=== PATIENT | male | born 1965 | race Caucasian/White ===

== ENCOUNTER 2021-12-06 12:41 | Emergency (ER) | payer MEDICARE, OTHER ==
[2021-12-06 12:50] VITALS: BP 121/77; PULSE 103; RESP 18; TEMP 98.8
--- NOTE | 2021-12-06 14:35 | XR ---
EXAMINATION TYPE: XR femur RT, XR Hip Complete RT DATE OF EXAM: 12/06/2021 1:38 PM INDICATION: Patient age:Male; 56 years old; Reason for study: pain; COMPARISON: Right knee radiograph 09/10/2015 TECHNIQUE: The right femur was examined in AP and lateral projections. Right hip is examined in front al and lateral projections. FINDINGS: Post surgical changes from right total hip arthroplasty. Hardware appears intact. No evide nce of acute osseous pathology, joint dislocation, or soft tissue swelling . Pelvic phleboliths. Oste oarthritic changes of the right knee with joint space narrowing, sclerosis, marginal osteophytosis. N o joint effusion. IMPRESSION: 1. No acute osseous pathology. 2. Postsurgical changes from right total hip arthroplasty. Hardware appears intact. 3. Mild osteoarthritic changes of the right knee.
== END 2021-12-06 15:50 | disposition left against medical advice (07) ==
LOC: EC 12:41
DX: Z53.21 Procedure and treatment not carried out due to patient leaving prior to being seen by health care provider (principal)
CPT/HCPCS: 73502; 99499

== ENCOUNTER 2023-05-23 18:16 | Observation (INO) | payer MEDICARE, OTHER ==
--- NOTE | 2023-05-23 18:39 | ED ---
General Adult HPI - General Chief complaint: Shortness of Breath Stated complaint: Dyspnea Time Seen by Provider: 05/23/23 18:26 Source: patient, family, RN notes reviewed Mode of arrival: wheelchair Limitations: no limitations - History of Present Illness Initial comments: Patient is a 57-year-old male presenting to the emergency department with compla ints of shortness of breath. Symptoms have progressed over the past few weeks. Patient does have nonproductive cough. No fever. Patient has had a little bit of leg swelling. No calf pain. Patient is also developed some right upper abdominal discomfort. Patient does have history of COPD with similar symptoms previously - Related Data Home Medications Medication Instructions Recorded Confirmed ALPRAZolam [Xanax] 0.25 mg PO HS PRN 11/17/14 11/23/14 Albuterol Inhaler [Ventolin 1 - 2 puff INHALATION Q6HR PRN 11/17/14 11/23/14 Inhaler] Albuterol Nebulized [Ventolin 2.5 mg INHALATION BID 11/17/14 11/23/14 Nebulized] Ibuprofen [Motrin] 800 mg PO Q8HR PRN 11/17/14 11/23/14 Pregabalin [Lyrica] 300 mg PO BID 11/17/14 11/23/14 oxyCODONE-APAP 10-325MG [Percocet 1 each PO Q6HR PRN 11/17/14 11/23/14 10-325] Previous Rx's Medication Instructions Recorded Cyclobenzaprine [Flexeril] 10 mg PO TID PRN #15 tab 11/23/14 Allergies Allergy/AdvReac Type Severity Reaction Status Date / Time venom-honey bee Allergy Unknown Verified 12/06/21 12:50 [bee venom (honey bee)] Review of Systems ROS Statement: Those systems with pertinent positive or pertinent negative responses have been documented in the HPI. ROS Other: All systems not noted in ROS Statement are negative. Constitutional: Denies: fever Eyes: Denies: eye pain ENT: Denies: ear pain Respiratory: Reports: as per HPI, cough, dyspnea Cardiovascular: Denies: chest pain Endocrine: Reports: fatigue Gastrointestinal: Reports: as per HPI, abdominal pain Genitourinary: Denies: dysuria Musculoskeletal: Denies: back pain Skin: Denies: rash Past Medical History Past Medical History: Asthma, Chest Pain / Angina, COPD Additional Past Medical History / Comment(s): pain upper neck, lt shoulder and lower back with 3 bulging disc History of Any Multi-Drug Resistant Organisms: None Reported Past Surgical History: Orthopedic Surgery Additional Past Surgical History / Comment(s): rt rotator cuff repair, tumor removed lower back Past Anesthesia/Blood Transfusion Reactions: No Reported Reaction Past Psychological History: Anxiety Smoking Status: Current every day smoker Past Alcohol Use History: Occasional Past Drug Use History: Marijuana - Past Family History Father Family Medical History: Cancer, CVA/TIA, Myocardial Infarction ([place]) Mother Family Medical History: CVA/TIA, Myocardial Infarction ([place]) Brother(s) Family Medical History: Cancer, Coronary Artery Disease (CAD) Additional Family Medical History / Comment(s): brother- heart transplant, other brother liver cancer General Exam Limitations: no limitations General appearance: alert Head exam: Present: normocephalic Eye exam: Present: normal appearance Neck exam: Present: normal inspection Respiratory exam: Present: respiratory distress, wheezes, decreased breath sounds Cardiovascular Exam: Present: regular rate, normal rhythm GI/Abdominal exam: Present: soft, tenderness (Mild to moderate right upper quadrant), normal bowel sounds. Absent: pulsatile mass Extremities exam: Present: pedal edema (+1 bilateral). Absent: calf tenderness Neurological exam: Present: alert Psychiatric exam: Present: anxious Skin exam: Present: normal color Course Vital Signs 05/23/23 05/23/23 05/23/23 18:18 18:20 18:47 Temperature 98.3 F Pulse Rate 97 81 Respiratory 46 H 24 Rate Blood Pressure 180/96 O2 Sat by Pulse 85 L Oximetry 05/23/23 05/23/23 18:56 20:20 Temperature 98.5 F Pulse Rate 83 89 Respiratory 20 Rate Blood Pressure 145/78 O2 Sat by Pulse 92 L Oximetry EKG Findings - EKG Results: EKG: interpreted by ERMD (Right axis), sinus rhythm, normal QRS, normal ST/T Medical Decision Making - Medical Decision Making Was pt. sent in by a medical professional or institution (, PA, [employer], urgent care, hospital, or shelter...) When possible be specific @ -No Did you speak to anyone other than the patient for history (EMS, parent, family, police, friend...)? What history was obtained from this source @ -Family is present and helps confirm history and adds to additional history of right upper quadrant tenderness Did you review nursing and triage notes (agree or disagree)? Why? @ -I reviewed and agree with nursing and triage notes Were old charts reviewed (outside hosp., previous admission, EMS record, old EKG, old radiological studies, urgent care reports/EKG's, shelter records)? Report findings @ -Previous chest x-ray reviewed Differential Diagnosis (chest pain, altered mental status, abdominal pain women, abdominal pain men, vaginal bleeding, weakness, fever, dyspnea, syncope, headache, dizziness, GI bleed, back pain, seizure, CVA, palpatations, mental health, musculoskeletal)? @ -Differential Dyspnea: Coronary syndrome, arrhythmia, tamponade, asthma, COPD, pulmonary embolism, pneumonia, pneumothorax, pulmonary effusion, anaphylaxis, diabetic ketoacidosis, flailed chest, pulmonary contusion, diaphragmatic rupture, anemia, neuromuscular, this is not meant to be an all-inclusive list. EKG interpreted by me (3pts min.). @ -As above X-rays interpreted by me (1pt min.). @ -Chest x-ray shows nonspecific interstitial changes CT interpreted by me (1pt min.). @ -None done U/S interpreted by me (1pt. min.). @ -Ultrasound gallbladder shows no stones. Nonspecific hepatic steatosis What testing was considered but not performed or refused? (CT, X-rays, U/S, labs)? Why? @ -None What meds were considered but not given or refused? Why? @ -None Did you discuss the management of the patient with other professionals (professionals i.e. , PA, [employer], lab, RT, psych nurse, social media senior associate, rib builder, teacher, ambulance officer, counter caser)? Give summary @ -Case was discussed with Dr. Richard, who will admit covering hospital call Was smoking cessation discussed for >3mins.? @ -No Was critical care preformed (if so, how long)? @ -No Were there social determinants of health that impacted care today? How? (Homelessness, low income, unemployed, alcoholism, drug addiction, transportation, low edu. Level, literacy, decrease access to med. care, [facility], rehab)? @ -No Was there de-escalation of care discussed even if they declined (Discuss DNR or withdrawal of care, Hospice)? DNR status @ -No What co-morbidities impacted this encounter? (DM, HTN, Smoking, COPD, CAD, Cancer, CVA, ARF, Chemo, Hep., AIDS, mental health diagnosis, sleep apnea, morbid obesity)? @ -Underlying COPD Was patient admitted / discharged? Hospital course, mention meds given and route, prescriptions, significant lab abnormalities, going to OR and other pertinent info. @ -Patient reevaluated and somewhat improved. No respiratory distress. Patient requiring 3 L of oxygen to remain above 90%. His continued wheezing and decreased air exchange. Patient updated on results and plan. Patient will be admitted with pulmonary consult. Undiagnosed new problem with uncertain prognosis? @ -No Drug Therapy requiring intensive monitoring for toxicity (Heparin, Nitro, Insulin, Cardizem)? @ -No Were any procedures done? @ -No Diagnosis/symptom? @ -COPD exacerbation Acute, or Chronic, or Acute on Chronic? @ -Acute Uncomplicated (without systemic symptoms) or Complicated (systemic symptoms)? @ -Default Side effects of treatment? @ -No Exacerbation, Progression, or Severe Exacerbation? @ -Exacerbation Poses a threat to life or bodily function? How? (Chest pain, [place], [place], pneumonia, PE, COPD, DKA, ARF, appy, cholecystitis, CVA, Diverticulitis, Homicidal, Suicidal, threat to staff... and all critical care pts) @ -No - Lab Data Result diagrams: 05/23/23 18:43 05/23/23 18:43 Lab Results 05/23/23 05/23/23 05/23/23 Range/Units 18:43 18:43 18:43 WBC 7.9 (3.8-10.6) k/uL RBC 4.61 (4.30-5.90) m/uL Hgb 14.8 (13.0-17.5) gm/dL Hct 46.2 (39.0-53.0) % MCV 100.3 H (80.0-100.0) fL MCH 32.2 (25.0-35.0) pg MCHC 32.1 (31.0-37.0) g/dL RDW 14.6 (11.5-15.5) % Plt Count 259 (150-450) k/uL MPV 7.6 Neutrophils % 66 % Lymphocytes % 19 % Monocytes % 7 % Eosinophils % 5 % Basophils % 1 % Neutrophils # 5.3 (1.3-7.7) k/uL Lymphocytes # 1.5 (1.0-4.8) k/uL Monocytes # 0.5 (0-1.0) k/uL Eosinophils # 0.4 (0-0.7) k/uL Basophils # 0.0 (0-0.2) k/uL Macrocytosis Slight PT 10.5 (10.0-12.5) sec INR 1.0 (<1.2) APTT 25.9 (22.0-30.0) sec Sodium 137 (137-145) mmol/L Potassium 4.3 (3.5-5.1) mmol/L Chloride 101 (98-107) mmol/L Carbon Dioxide 34 H (22-30) mmol/L Anion Gap 2 mmol/L BUN 4 L (9-20) mg/dL Creatinine 0.63 L (0.66-1.25) mg/dL Est GFR (CKD-EPI)AfAm >90 (>60 ml/min/1.73 sqM) Est GFR (CKD-EPI)NonAf >90 (>60 ml/min/1.73 sqM) Glucose 114 H (74-99) mg/dL Plasma Lactic Acid Kelvin (0.7-2.0) mmol/L Calcium 9.0 (8.4-10.2) mg/dL Magnesium 1.8 (1.6-2.3) mg/dL Total Bilirubin 0.7 (0.2-1.3) mg/dL AST 52 (17-59) U/L ALT 31 (4-49) U/L Alkaline Phosphatase 85 (38-126) U/L Troponin I (0.000-0.034) ng/mL NT-Pro-B Natriuret Pep 310 pg/mL Total Protein 6.7 (6.3-8.2) g/dL Albumin 4.2 (3.5-5.0) g/dL Influenza Type A (PCR) (Not Detectd) Influenza Type B (PCR) (Not Detectd) RSV (PCR) (Not Detectd) SARS-CoV-2 (PCR) (Not Detectd) 05/23/23 05/23/23 05/23/23 Range/Units 18:43 18:43 18:43 WBC (3.8-10.6) k/uL RBC (4.30-5.90) m/uL Hgb (13.0-17.5) gm/dL Hct (39.0-53.0) % MCV (80.0-100.0) fL MCH (25.0-35.0) pg MCHC (31.0-37.0) g/dL RDW (11.5-15.5) % Plt Count (150-450) k/uL MPV Neutrophils % % Lymphocytes % % Monocytes % % Eosinophils % % Basophils % % Neutrophils # (1.3-7.7) k/uL Lymphocytes # (1.0-4.8) k/uL Monocytes # (0-1.0) k/uL Eosinophils # (0-0.7) k/uL Basophils # (0-0.2) k/uL Macrocytosis PT (10.0-12.5) sec INR (<1.2) APTT (22.0-30.0) sec Sodium (137-145) mmol/L Potassium (3.5-5.1) mmol/L Chloride (98-107) mmol/L Carbon Dioxide (22-30) mmol/L Anion Gap mmol/L BUN (9-20) mg/dL Creatinine (0.66-1.25) mg/dL Est GFR (CKD-EPI)AfAm (>60 ml/min/1.73 sqM) Est GFR (CKD-EPI)NonAf (>60 ml/min/1.73 sqM) Glucose (74-99) mg/dL Plasma Lactic Acid Kelvni 1.5 (0.7-2.0) mmol/L Calcium (8.4-10.2) mg/dL Magnesium (1.6-2.3) mg/dL Total Bilirubin (0.2-1.3) mg/dL AST (17-59) U/L ALT (4-49) U/L Alkaline Phosphatase (38-126) U/L Troponin I <0.012 (0.000-0.034) ng/mL NT-Pro-B Natriuret Pep pg/mL Total Protein (6.3-8.2) g/dL Albumin (3.5-5.0) g/dL Influenza Type A (PCR) Not Detected (Not Detectd) Influenza Type B (PCR) Not Detected (Not Detectd) RSV (PCR) Not Detected (Not Detectd) SARS-CoV-2 (PCR) Not Detected (Not Detectd) Disposition Clinical Impression: Acute exacerbation of chronic obstructive pulmonary disease Disposition: ADMITTED IP TO THIS HOSP Is patient prescribed a controlled substance at d/c from ED?: No Referrals: None,Stated [Primary Care Provider] - 1-2 days Time of Disposition: 22:11
[2023-05-23] MEDS: IPRATROPIUM-ALBUTEROL 3 ML NEB INHALATION STA (18:48)
[2023-05-23] MEDS: MORPHINE SULFATE 4 MG/ML SYRINGE IVP STA (18:53)
[2023-05-23] MEDS: methylPREDNISolone SOD SUCCI 125 MG/2 ML VIAL IV STA (18:53)
[2023-05-23 19:04] LABS: Basophils % (A) 1 %; Eosinophils # (A) 0.4 k/uL (0-0.7); Eosinophils % (A) 5 %; HCT 46.2 % (39.0-53.0); HGB 14.8 gm/dL (13.0-17.5); Lymphocytes # (A) 1.5 k/uL (1.0-4.8); Lymphocytes % (A) 19 %; MCH 32.2 pg (25.0-35.0); MCHC 32.1 g/dL (31.0-37.0); MCV 100.3 fL (80.0-100.0); Macrocytosis Slight; Mean Platelet Volume 7.6; Monocytes # (A) 0.5 k/uL (0-1.0); Monocytes % (A) 7 %; Neutrophils # (A) 5.3 k/uL (1.3-7.7); Neutrophils % (A) 66 %; Platelet Count 259 k/uL (150-450); RBC 4.61 m/uL (4.30-5.90); RDW 14.6 % (11.5-15.5); WBC 7.9 k/uL (3.8-10.6)
[2023-05-23 19:16] LABS: ALT 31 U/L (4-49); AST 52 U/L (17-59); African American GFR (CKD) >90 (>60 ml/min/1.73 sqM); Albumin 4.2 g/dL (3.5-5.0); Alkaline Phosphatase 85 U/L (38-126); Anion Gap 2 mmol/L; Blood Urea Nitrogen 4 mg/dL (9-20); Carbon Dioxide 34 mmol/L (22-30); Chloride 101 mmol/L (98-107); Glucose 114 mg/dL (74-99); Magnesium 1.8 mg/dL (1.6-2.3); Non-African American GFR(CKD) >90 (>60 ml/min/1.73 sqM); Potassium 4.3 mmol/L (3.5-5.1); Sodium 137 mmol/L (137-145); Total Bilirubin 0.7 mg/dL (0.2-1.3); Total Protein 6.7 g/dL (6.3-8.2)
[2023-05-23 19:24] LABS: NT-Pro-B-Type Natriuretic Pept 310 pg/mL
[2023-05-23 19:45] LABS: Partial Thromboplastin Time 25.9 sec (22.0-30.0); Prothrombin Time 10.5 sec (10.0-12.5)
--- NOTE | 2023-05-23 20:08 | XR ---
EXAMINATION TYPE: XR chest 2V DATE OF EXAM: 05/23/2023 COMPARISON: 11/23/2014 HISTORY: 57 year-old male shortness of breath, difficulty breathing TECHNIQUE: PA and lateral views FINDINGS: Reverse left shoulder plasty. ACF hardware. Heart borderline enlarged. Hyperinflation. Diffuse inters titial density is present. Strandy atelectasis at the left base. No angel consolidation or pleural ef fusion. IMPRESSION: Borderline heart size, COPD, and interstitial density. Differential considerations include bronchitis , asthma, atypical pneumonias, and mild pulmonary vascular congestion. Clinically correlate.
--- NOTE | 2023-05-23 21:08 | US ---
EXAMINATION TYPE: US gallbladder DATE OF EXAM: 05/23/2023 COMPARISON: NONE CLINICAL INDICATION: Male, 57 years old with history of pain; TECHNIQUE: Multiple sonographic images of the right upper quadrant are obtained. FINDINGS: EXAM MEASUREMENTS: Liver Length: 15.9 cm Gallbladder Wall: 0.14 cm CBD: 0.49 cm Right Kidney: 10.6 x 5.9 x 4.9 cm Pancreas: Obscured by bowel gas Liver: Echogenic with heterogeneous parenchyma. Small hypoechoic area seen adjacent to the GB measur ing 1.1 x 1.3 x 0.7cm. Tiny suggest focal fatty sparing. Gallbladder: wnl Evidence for sonographic Nugent's sign: No CBD: wnl Right Kidney: wnl IMPRESSION: 1. At least moderate hepatic steatosis. Appropriate clinical management is advised. 2. No gallstones or biliary ductal dilatation.
[2023-05-23] MEDS ORDERED: NALOXONE 0.4 MG/ML 1 ML VIAL IVP PRN (22:12)
[2023-05-23] MEDS: AZITHROMYCIN 500 MG in SODIUM CHLORIDE 0.9% 250 ML IVPB STA (22:44)
[2023-05-23] MEDS: ACETAMINOPHEN TAB 325 MG TAB PO PRN (22:53)
[2023-05-24] MEDS: methylPREDNISolone SOD SUCCI 125 MG/2 ML VIAL IV SCH (00:19)
[2023-05-24] MEDS: THIAMINE 100 MG/ML 2 ML VIAL IM STA (00:35)
[2023-05-24] MEDS: MORPHINE SULFATE 4 MG/ML SYRINGE IVP STA (00:35)
[2023-05-24] MEDS: LORazepam 2 MG/ML INJ IV PRN ×3 (01:27→12:08)
--- NOTE | 2023-05-24 03:14 | P.HPIM ---
History of Present Illness H&P Date: 05/23/23 Chief Complaint: SOB 57-year-old male with COPD current smoker Patient coming in due to a main concern of bilateral leg edema he reports 2 to 3 months of progressive exertional dyspnea and orthopnea. And over the past 1 month he noticed gradual swelling of his bilateral legs and increased abdominal bloating and distention. He denies any chest pain however does report some right upper quadrant abdominal pain. Over the past few days he has been having severe shortness of breath even at rest while doing nothing just speaking gives him a lot of distress walking around the house has become difficult he reports chronic cough unchanged chronic sputum production whitish in color unchanged denies any fevers or chills denies any hemoptysis denies any weight loss he admits to ongoing smoking denies any known sick contacts denies any recent travel or hospital stay denies any history of blood clots denies any nausea vomiting diarrhea or changes in bowel or urinary habits denies any GI bleeding Patient does use home oxygen as needed however he has been increasingly re quiring that over the past couple days despite supplemental oxygen he is getting no relief from his shortness of breath for which she decided to come in for evaluation Patient does admit to tobacco smoking, occasional marijuana, and daily drinking review of systems Pertinent positives as noted in HPI. All other systems were reviewed and are negative on exam Constitutional: No acute distress, however gets short of breath while talking resulting in unable to finish his sentence Eyes: Anicteric sclerae, moist conjunctiva, Pupils equal round reactive to light ENMT: NC/AT Oropharynx clear, no erythema, or exudates Neck: Supple, no masses, or JVD No carotid bruits No thyromegaly Lungs: Prolonged expiratory phase with wheezing some inspiratory rales lung bases Clear to percussion Normal respiratory effort, no accessory muscle use Cardiovascular: Heart regular in rate and rhythm, No murmurs, gallops, or rubs +1 bilateral peripheral leg edema Abdominal: Mild distention Tenderness to deep palpation of the right upper quadrant, no guarding, rebound or rigidity Abdomen moving with respiration Normoactive bowel sounds No hepatomegaly, No splenomegaly No palpable mass No abdominal wall hernia noted Extremities: No digital cyanosis No clubbing Pedal pulses intact and symmetrical Radial pulses intact and symmetrical No calf tenderness Psychiatric: Alert and oriented to person, place and time Appropriate affect fair judgement Neuro Muscles Strength 5/5 in all 4 extremities Sensation to light touch grossly present throughout Cranial nerves II-XII grossly intact Lymphatics: no palpable cervical or supraclavicular lymph nodes Past Medical History Past Medical History: Asthma, Chest Pain / Angina, COPD Additional Past Medical History / Comment(s): pain upper neck, lt shoulder and lower back with 3 bulging disc History of Any Multi-Drug Resistant Organisms: None Reported Past Surgical History: Orthopedic Surgery Additional Past Surgical History / Comment(s): rt rotator cuff repair, tumor removed lower back Past Anesthesia/Blood Transfusion Reactions: No Reported Reaction Past Psychological History: Anxiety Smoking Status: Current every day smoker Past Alcohol Use History: Occasional Past Drug Use History: Marijuana - Past Family History Father Family Medical History: Cancer, CVA/TIA, Myocardial Infarction ([place]) Mother Family Medical History: CVA/TIA, Myocardial Infarction ([place]) Brother(s) Family Medical History: Cancer, Coronary Artery Disease (CAD) Additional Family Medical History / Comment(s): brother- heart transplant, other brother liver cancer Medications and Allergies Home Medications Medication Instructions Recorded Confirmed Type Albuterol Inhaler [Ventolin 1 - 2 puff INHALATION RT-Q6H PRN 11/17/14 05/23/23 History Inhaler] Ibuprofen [Motrin] 800 mg PO TID 11/17/14 05/23/23 History oxyCODONE-APAP 10-325MG [Percocet 1 tab PO TID 11/17/14 05/23/23 History 10-325] EPINEPHrine (Auto Inject) [Epipen] 0.3 mg IM ONCE PRN 05/23/23 05/23/23 History Omeprazole 20 mg PO DAILY 05/23/23 05/23/23 History Pregabalin [Lyrica] 150 mg PO TID 05/23/23 05/23/23 History Allergies Allergy/AdvReac Type Severity Reaction Status Date / Time venom-honey bee Allergy Unknown Verified 05/23/23 23:09 [bee venom (honey bee)] Physical Exam Vitals: Vital Signs Temp Pulse Resp BP Pulse Ox 05/24/23 02:20 74 15 128/72 92 L 05/24/23 01:36 88 20 130/76 92 L 05/23/23 23:00 85 20 130/76 92 L 05/23/23 20:20 98.5 F 89 20 145/78 92 L 05/23/23 18:56 83 05/23/23 18:47 81 05/23/23 18:20 24 05/23/23 18:18 98.3 F 97 46 H 180/96 85 L Intake and Output 05/23/23 05/23/23 05/24/23 14:59 22:59 06:59 Other: Weight 97.976 kg Results CBC & Chem 7: 05/23/23 18:43 05/23/23 18:43 Labs: Abnormal Lab Results - Last 24 Hours (Table) 05/23/23 05/23/23 Range/Units 18:43 18:43 MCV 100.3 H (80.0-100.0) fL Carbon Dioxide 34 H (22-30) mmol/L BUN 4 L (9-20) mg/dL Creatinine 0.63 L (0.66-1.25) mg/dL Glucose 114 H (74-99) mg/dL Assessment and Plan Assessment: 57-year-old male with COPD on home oxygen 2 L as needed coming in for worsening shortness of breath and exertional dyspnea for the past couple weeks to months I discussed case with ED doctor and accepted the admission for acute COPD exacerbation, with possible pulmonary vascular congestion to rule out underlying congestive heart failure with anticipated length of stay more than 2 midnights Acute on chronic hypoxic respiratory failure Acute COPD exacerbation Plan Supplemental oxygen as needed Systemic IV steroids with Solu-Medrol 60 mg every 6 hours Azithromycin 500 mg IV piggyback daily DuoNebs scheduled and as needed Symbicort twice daily Acute respiratory viral panel negative for influenza RSV and COVID White count 7.9 hemoglobin 14.8 both unremarkable Renal function unremarkable sodium 137 potassium 4.3 BUN 4 creatinine 0.6 Liver enzymes unremarkable AST 52 ALT 31 alkaline phosphatase 85 bilirubin 0.7 Troponins negative proBNP 310 unremarkable Gallbladder ultrasound no acute pathology Patient counseled to quit smoking Chest x-ray showing mild pulmonary vascular congestion Check echocardiogram due to report of orthopnea and exertional dyspnea over the past few months Daily alcohol intake Monitor for alcohol withdrawal syndrome Benzos per CIWA scale Thiamine daily p.o. DVT prophylaxis Lovenox 40 mg subcu daily Full code
--- NOTE | 2023-05-24 03:22 | P.CNPUL ---
History of Present Illness Consult date: 05/24/23 Requesting physician: Kian Parikh Reason for consult: COPD Chief complaint: Progressively worsening shortness of breath over the last 2 months History of present illness: I am seeing this patient in consultation today 05/24/2023 for suspected acute COPD exacerbation. Patient is a 57-year-old white male with past medical history significant for COPD, chronic and ongoing tobacco dependence, alc oholism. He has recently become established with a new PCP, and is unable to recall her name. Patient states that he has been previously diagnosed with COPD. He has used a combination of albuterol nebulizations and Advair discus in the past, but has ran out of refills. Over the last couple months the patient has been experiencing progressively worsening shortness of breath. Especially on exertion. He endorses chest tightness and coughing episodes which are mostly nonproductive. Occasionally will have green/brown sputum. He continues to smoke a little bit less than 1 pack/day. He also drinks 1 pint of schnapps per day. He states that he started doing this after his significant other approximately 6 months ago. He is also complaining of increased lower extremity swelling. He denies any chest pain, heart palpitations, orthopnea, PND. 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 Denies ever having a stress test or echocardiogram. Patient is currently sitting at the edge of the bed, on 3 L/min nasal cannula, in no acute distress. He does become dyspneic with prolonged conversation. Chest x-ray on arrival hyperinflation consistent with COPD. There is also mild diffuse interstitial densities which could reflect bronchitis, asthma, atypical pneumonia, or mild pulmonary vascular congestion. No angel consolidation or pleural effusion. Negative for influenza, RSV, COVID on arrival. CBC unremarkable. No leukocytosis. BMP includes a sodium 137, potassium 4.3, chloride 101, serum bicarb 34, BUN 4, creatinine 0.63, glucose 113. Troponin less than 0.012. NT proBNP 310. Patient is also reporting some right upper quadrant abdominal pain. Described as sore. Tender with palpation. No nausea, vomiting, diarrhea. No history of peptic ulcers. No bloody BM or hematemesis. Ultrasound of the gallbladder did not show any gallstones or biliary ductal dilation. There was moderate hepatic steatosis. LFTs not elevated. Afebrile. Vital signs are stable. Review of Systems REVIEW OF SYSTEMS: CONSTITUTIONAL: Denies any recent significant weight loss or weight gain. EYES: Denies change in vision. EARS, NOSE, MOUTH, THROAT: Denies headaches, denies sore throat. CARDIOVASCULAR: Denies chest pain, palpitations or syncopal episodes. Admits bilateral lower extremity swelling over the last couple months. RESPIRATORY: See HPI GASTROINTESTINAL: See HPI. GENITOURINARY: Denies hematuria, denies infections. MUSKULOSKELETAL: Denies pain, denies swelling. INTEGUMENTARY: Denies rash, denies eczema. NEUROLOGICAL: Denies recent memory loss, no recent seizure activity. Admits to numbness of his bilateral feet/toes. PSYCHIATRIC: Denies anxiety, denies depression. HEMATOLOGIC/LYMPHATIC: Denies anemia, denies enlarged lymph node Past Medical History Past Medical History: Asthma, Chest Pain / Angina, COPD Additional Past Medical History / Comment(s): pain upper neck, lt shoulder and lower back with 3 bulging disc History of Any Multi-Drug Resistant Organisms: None Reported Past Surgical History: Orthopedic Surgery Additional Past Surgical History / Comment(s): rt rotator cuff repair, tumor removed lower back Past Anesthesia/Blood Transfusion Reactions: No Reported Reaction Past Psychological History: Anxiety Smoking Status: Current every day smoker Past Alcohol Use History: Occasional Past Drug Use History: Marijuana - Past Family History Father Family Medical History: Cancer, CVA/TIA, Myocardial Infarction ([place]) Mother Family Medical History: CVA/TIA, Myocardial Infarction ([place]) Brother(s) Family Medical History: Cancer, Coronary Artery Disease (CAD) Additional Family Medical History / Comment(s): brother- heart transplant, other brother liver cancer Medications and Allergies Home Medications Medication Instructions Recorded Confirmed Type Albuterol Inhaler [Ventolin 1 - 2 puff INHALATION RT-Q6H PRN 11/17/14 05/23/23 History Inhaler] Ibuprofen [Motrin] 800 mg PO TID 11/17/14 05/23/23 History oxyCODONE-APAP 10-325MG [Percocet 1 tab PO TID 11/17/14 05/23/23 History 10-325] EPINEPHrine (Auto Inject) [Epipen] 0.3 mg IM ONCE PRN 05/23/23 05/23/23 History Omeprazole 20 mg PO DAILY 05/23/23 05/23/23 History Pregabalin [Lyrica] 150 mg PO TID 05/23/23 05/23/23 History Allergies Allergy/AdvReac Type Severity Reaction Status Date / Time venom-honey bee Allergy Unknown Verified 05/23/23 23:09 [bee venom (honey bee)] Physical Exam Vitals: Vital Signs Temp Pulse Resp BP Pulse Ox 05/24/23 02:20 74 15 128/72 92 L 05/24/23 01:36 88 20 130/76 92 L 05/23/23 23:00 85 20 130/76 92 L 05/23/23 20:20 98.5 F 89 20 145/78 92 L 05/23/23 18:56 83 05/23/23 18:47 81 05/23/23 18:20 24 05/23/23 18:18 98.3 F 97 46 H 180/96 85 L Intake and Output 05/23/23 05/23/23 05/24/23 14:59 22:59 06:59 Other: Weight 97.976 kg GENERAL EXAM: Alert, 57-year-old white male, sitting at the edge of the bed, mildly dyspneic while talking. HEAD: Normocephalic and atraumatic EYES: Normal reaction of pupils, equal size. NOSE: Clear with pink turbinates. THROAT: No erythema or exudates. NECK: No masses, no JVD. CHEST: No chest wall deformity. LUNGS: Equal air entry with diffuse rhonchi and expiratory wheezes. On 3 L/min nasal cannula. Conversational dyspnea, patient speaks in phrases. No accessory muscle use. CVS: S1 and S2 normal with no audible murmur, regular rhythm. No extra heart sounds ABDOMEN: No hepatosplenomegaly, active bowel sounds, no guarding or rigidity. SPINE: No scoliosis or deformity SKIN: No rashes CENTRAL NERVOUS SYSTEM: No focal deficits, tone is normal in all 4 extremities. EXTREMITIES: There is 1+ bilateral lower extremity edema. No clubbing, or cyanosis. Peripheral pulses are intact. Results - Laboratory Findings CBC and BMP: 05/23/23 18:43 05/23/23 18:43 PT/INR, D-dimer PT 10.5 sec (10.0-12.5) 05/23/23 18:43 INR 1.0 (<1.2) 02/20/24 18:43 Abnormal lab findings: Abnormal Labs 05/23/23 05/23/23 18:43 18:43 MCV 100.3 H Carbon Dioxide 34 H BUN 4 L Creatinine 0.63 L Glucose 114 H - Diagnostic Findings Chest x-ray: image reviewed Assessment and Plan Assessment: Acute hypoxemic respiratory failure, secondary to acute COPD exacerbation Chronic ongoing tobacco dependence, smokes slightly less than 1 pack/day Alcoholism, drinks 1 pint of schnapps per day Hepatic steatosis Bilateral lower extremity edema Bilateral lower extremity neuropathy Obesity, with a BMI of 33.8 kg/m Plan: Patient's medications, labs, chest x-ray reviewed Continue supplemental oxygen to maintain oxygen saturation of 92% or greater Start patient on combination of DuoNebs [id number], Symbicort inhaler, and IV Solu-Medrol Negative for influenza, RSV, COVID. Empirically covered on azithromycin. Check procalcitonin level. Smoking cessation counseling performed. Nicotine patch offered. Echocardiogram pending [facility] protocol initiated. Protonix for GI prophylaxis. Will continue to follow I have personally seen and examined the patient, performed the documentation and the assessment and plan as written. Number of minutes spent on the visit:20 Time with Patient: Greater than 30
[2023-05-24] MEDS: FUROSEMIDE 10 MG/ML 4 ML VIAL IV STA (03:32)
[2023-05-24] MEDS: IPRATROPIUM-ALBUTEROL 3 ML NEB INHALATION SCH (08:07)
[2023-05-24] MEDS: SYMBICORT 160-4.5 MCG INHALER INHALATION SCH (08:08)
[2023-05-24] MEDS: PANTOPRAZOLE 40 MG TABLET PO SCH (08:43)
[2023-05-24] MEDS: ENOXAPARIN 40 MG/0.4 ML SYRINGE SQ SCH (08:45)
[2023-05-24] MEDS: PREGABALIN 75 MG CAP PO SCH (08:45)
[2023-05-24] MEDS: NICOTINE 21MG/24HR PATCH TRANSDERM SCH (08:45)
--- NOTE | 2023-05-24 12:24 | P.PN ---
Subjective Progress Note Date: 05/24/23 Hospital Course: 57-year-old male with history of COPD, nicotine dependence, alcohol dependence presenting with progressively worsening shortness of breath. Patient continues to smoke about 1 pack/day, drinks 1 pint of alcohol per day. Has been complaining of some lower extremity swelling as well. On initial presentation, patient was hypoxic on room air, hypertensive, tachypneic. Laboratory workup showed bicarb of 34, creatinine was 0.63, troponin negative, proBNP 310, respiratory viral panel was negative. Chest x-ray showed interstitial opacities. EKG showed sinus rhythm. Patient also had gallbladder ultrasound which showed moderate hepatic steatosis, no gallstones or biliary ductal dilat ation. Patient admitted for COPD exacerbation, alcohol withdrawal, possible CHF exacerbation. Pulmonology consulted. Subjective: Patient seen and examined at bedside. No acute events overnight., Patient received Ativan right before I saw him. Pertinent positives and negatives as discussed above, a complete review of systems was performed and all other systems are negative. Vitals Signs Reviewed. General: Nontoxic, no distress, appears at stated age, very somnolent Derm: Warm, dry Head: Atraumatic, normocephalic, symmetric Eyes: EOMI, no lid lag, anicteric sclera Mouth: No lip lesion, mucus membranes moist Cardiovascular: S1S2 reg, no murmur Lungs: Bilateral rhonchi, no accessory muscle use, supplemental oxygen Abdominal: Soft, nontender to palpation, no guarding, no appreciable organomegaly Ext: No gross muscle atrophy, no edema, no contractures Neuro: CN II-XI grossly intact, no focal neuro deficits Psych: Very somnolent, oriented, appropriate affect Data Reviewed Today: Pertinent Labs: No new labs Imaging: No new imaging Assessment and Plan: Active: Acute hypoxic respiratory failure Acute COPD exacerbation Nicotine dependence Bilateral lower extremity edema -Wean supplemental oxygen Continue IV Solu-Medrol 60 every 6 hours, monitor mentation and blood sugars DuoNebs 4 times daily scheduled and as needed, continue Symbicort twice daily Also on azithromycin 500 IV daily -Was given 40 of IV Lasix in the ER, echocardiogram pending -Monitor BMP and magnesium Acute alcohol withdrawal Alcohol dependence Hepatic steatosis -Ativan as needed per CIWA score, monitor for sedation -Thiamine 100 mg daily Chronic: Obesity Neuropathy DVT ppx: Lovenox Code status: Full code Anticipated discharge place: Pending clinical course Anticipated discharge time: Pending clinical course Objective - Vital Signs Vital signs: Vital Signs Temp 98.5 F 05/23/23 20:20 Pulse 79 05/24/23 12:00 Resp 18 05/24/23 12:00 BP 149/77 05/24/23 12:00 Pulse Ox 91 L 05/24/23 12:00 FiO2 Intake & Output 05/23/23 05/24/23 05/24/23 18:59 06:59 18:59 Weight 97.976 kg - Labs CBC & Chem 7: 05/23/23 18:43 05/23/23 18:43 Labs: Abnormal Lab Results - Last 24 Hours (Table) 05/23/23 05/23/23 Range/Units 18:43 18:43 MCV 100.3 H (80.0-100.0) fL Carbon Dioxide 34 H (22-30) mmol/L BUN 4 L (9-20) mg/dL Creatinine 0.63 L (0.66-1.25) mg/dL Glucose 114 H (74-99) mg/dL
[2023-05-24 17:06] LABS: Glucose,Whole Blood 159 mg/dL (70-110)
[2023-05-24 20:18] LABS: Glucose,Whole Blood 218 mg/dL (70-110)
[2023-05-24] MEDS: oxyCODONE-APAP 10-325MG 1 EACH TAB PO PRN (20:37)
[2023-05-24] MEDS: AZITHROMYCIN 500 MG in SODIUM CHLORIDE 0.9% 250 ML IVPB SCH (22:46)
[2023-05-25] MEDS: LORazepam 2 MG/ML INJ IV STA (00:32)
[2023-05-25] MEDS: HALOPERIDOL LACTATE 5 MG/ML 1 ML VIAL IVP PRN ×2 (02:16→06:29)
[2023-05-25] MEDS: IPRATROPIUM-ALBUTEROL 3 ML NEB INHALATION PRN (06:17)
[2023-05-25 06:48] LABS: Basophils % (A) 0 %; Eosinophils # (A) 0.1 k/uL (0-0.7); Eosinophils % (A) 1 %; HCT 46.6 % (39.0-53.0); HGB 14.9 gm/dL (13.0-17.5); Lymphocytes # (A) 0.8 k/uL (1.0-4.8); Lymphocytes % (A) 5 %; MCH 32.2 pg (25.0-35.0); MCV 100.7 fL (80.0-100.0); Macrocytosis Slight; Mean Platelet Volume 7.9; Monocytes # (A) 0.4 k/uL (0-1.0); Monocytes % (A) 3 %; Neutrophils # (A) 13.6 k/uL (1.3-7.7); Neutrophils % (A) 91 %; Platelet Count 303 k/uL (150-450); RBC 4.63 m/uL (4.30-5.90); RDW 14.8 % (11.5-15.5); WBC 14.9 k/uL (3.8-10.6)
[2023-05-25 07:00] LABS: African American GFR (CKD) >90 (>60 ml/min/1.73 sqM); Anion Gap 4 mmol/L; Blood Urea Nitrogen 18 mg/dL (9-20); Calcium 8.9 mg/dL (8.4-10.2); Carbon Dioxide 32 mmol/L (22-30); Chloride 104 mmol/L (98-107); Glucose 169 mg/dL (74-99); Magnesium 2.2 mg/dL (1.6-2.3); Non-African American GFR(CKD) >90 (>60 ml/min/1.73 sqM); Potassium 4.7 mmol/L (3.5-5.1); Sodium 140 mmol/L (137-145)
[2023-05-25] MEDS: THIAMINE 100 MG TAB PO SCH (08:11)
--- NOTE | 2023-05-25 08:23 | XR ---
EXAMINATION TYPE: XR chest 1V portable DATE OF EXAM: 05/25/2023 COMPARISON: 05/23/2023 HISTORY: Difficulty breathing TECHNIQUE: Single frontal view of the chest is obtained. FINDINGS: Bilateral AC joint arthropathy. Degenerative change of the spine. Limited inspiration with cardiomegaly and left lower lobe infiltrate. No pleural effusion or overt failure. Postsurgical shields ges left shoulder and overlying cervical spine. No pneumothorax. IMPRESSION: 1. Cardiomegaly with underlying COPD and left lower lobe atelectasis or early infiltrate.
[2023-05-25] MEDS: QUEtiapine 50 MG TAB PO SCH (09:09)
--- NOTE | 2023-05-25 10:47 | P.PN ---
Subjective Progress Note Date: 05/25/23 I am seeing this patient in consultation today 05/24/2023 for suspected acute COPD exacerbation. Patient is a 57-year-old white male with past medical history significant for COPD, chronic and ongoing tobacco dependence, alcoholism. He has recently become established with a new PCP, and is unable to recall her name. Patient states that he has been previously diagnosed with COPD. He has used a combination of albuterol nebulizations and Advair discus in the past, but has ran out of refills. Over the last couple months the patient has been experiencing progressively worsening shortness of breath. Especially on exertion. He endorses chest tightness and coughing episodes which are mostly nonproductive. Occasionally will have green/brown sputum. He continues to smoke a little bit less than 1 pack/day. He also drinks 1 pint of schnapps per day. He states that he started doing this after his significant other approximately 6 months ago. He is also complaining of increased lower extremity swelling. He denies any chest pain, heart palpitations, orthopnea, PND. He does not have a landfill gas technician. Denies ever having a stress test or echocardiogram. Patient is currently sitting at the edge of the bed, on 3 L/min nasal cannula, in no acute distress. He does become dyspneic with prolonged conversation. Chest x-ray on arrival hyperinflation consistent with COPD. There is also mild diffuse interstitial densities which could reflect bronchitis, asthma, atypical pneumonia, or mild pulmonary vascular congestion. No angel consolidation or pleural effusion. Negative for influenza, RSV, COVID on arrival. CBC unremarkable. No leukocytosis. BMP includes a sodium 137, potassium 4.3, chloride 101, serum bicarb 34, BUN 4, creatinine 0.63, glucose 113. Troponin less than 0.012. NT proBNP 310. Patient is also reporting some right upper quadrant abdominal pain. Described as sore. Tender with palpation. No nausea, vomiting, diarrhea. No history of peptic ulcers. No bloody BM or hematemesis. Ultrasound of the gallbladder did not show any gallstones or biliary ductal dilation. There was moderate hepatic steatosis. LFTs not elevated. Afebrile. Vital signs are stable. The patient is seen today May 25, 2023 in follow-up in the intensive care unit. 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 He remains on the CIWA protocol. He required 8 mg of Ativan through the night another 2 mg this morning. He is maintaining O2 saturation in the 90s on 5 L/min per nasal cannula. He is in sinus rhythm. Afebrile. Blood pressure stable. Chest x-ray reveals cardiomegaly with underlying COPD and a left lower lobe atelectasis or early infiltrate. White count 14.9. Hemoglobin 14.9. Platelets 303. Sodium 140. Potassium 4.7. Bicarb 32. BUN 18. Creatinine 0.60. Glucose 169. Procalcitonin was 0.13. He remains on azithromycin. Continued on DuoNeb inhalations, Symbicort, Solu-Medrol. NicoDerm patch in place. Lovenox for DVT prophylaxis Objective - Vital Signs Vital signs: Vital Signs Temp 97.5 F L 05/25/23 08:00 Pulse 88 05/25/23 10:00 Resp 21 05/25/23 10:00 BP 132/94 05/25/23 10:00 Pulse Ox 92 L 05/25/23 10:00 FiO2 Intake & Output 05/24/23 05/25/23 05/25/23 18:59 06:59 18:59 Intake Total 350 Output Total 425 50 Balance -425 300 Weight 94.6 kg Intake: Oral 350 Output: Urine 425 50 Other: Voiding Method Bedside Commode Bedside Commode # Voids 1 - Exam GENERAL EXAM: Alert, restless 57-year-old male, sitting at the edge of the bed, on 5 L nasal cannula, in no acute distress. HEAD: Normocephalic and atraumatic EYES: Normal reaction of pupils, equal size. NOSE: Clear with pink turbinates. THROAT: No erythema or exudates. NECK: No masses, no JVD. CHEST: No chest wall deformity. LUNGS: Equal air entry with diffuse rhonchi and expiratory wheezes. No accessory muscle use. CVS: S1 and S2 normal with no audible murmur, regular rhythm. No extra heart sounds ABDOMEN: No hepatosplenomegaly, active bowel sounds, no guarding or rigidity. SPINE: No scoliosis or deformity SKIN: No rashes CENTRAL NERVOUS SYSTEM: No focal deficits, tone is normal in all 4 extremities. EXTREMITIES: There is 1+ bilateral lower extremity edema. No clubbing, or cyanosis. Peripheral pulses are intact. - Labs CBC & Chem 7: 05/25/23 06:24 05/25/23 06:24 Labs: Abnormal Lab Results - Last 24 Hours (Table) 05/24/23 05/24/23 05/24/23 Range/Units 13:55 17:04 20:16 WBC (3.8-10.6) k/uL MCV (80.0-100.0) fL Neutrophils # (1.3-7.7) k/uL Lymphocytes # (1.0-4.8) k/uL Carbon Dioxide (22-30) mmol/L Creatinine (0.66-1.25) mg/dL Glucose (74-99) mg/dL POC Glucose (mg/dL) 159 H 218 H (70-110) mg/dL Procalcitonin 0.13 H (0.02-0.09) ng/mL 05/25/23 05/25/23 Range/Units 06:24 06:24 WBC 14.9 H (3.8-10.6) k/uL MCV 100.7 H (80.0-100.0) fL Neutrophils # 13.6 H (1.3-7.7) k/uL Lymphocytes # 0.8 L (1.0-4.8) k/uL Carbon Dioxide 32 H (22-30) mmol/L Creatinine 0.60 L (0.66-1.25) mg/dL Glucose 169 H (74-99) mg/dL POC Glucose (mg/dL) (70-110) mg/dL Procalcitonin (0.02-0.09) ng/mL Microbiology - Last 24 Hours (Table) 05/23/23 19:00 Blood Culture - Preliminary Blood 05/23/23 18:45 Blood Culture - Preliminary Blood Assessment and Plan Assessment: Acute hypoxemic respiratory failure, secondary to acute COPD exacerbation Chronic ongoing tobacco dependence, smokes slightly less than 1 pack/day Alcoholism, drinks 1 pint of schnapps per day Hepatic steatosis Bilateral lower extremity edema Bilateral lower extremity neuropathy Obesity, with a BMI of 33.8 kg/m Plan: The patient was seen and evaluated Chest x-ray, labs and medications reviewed Remains on the CIWA protocol Add Seroquel 50 mg 3 times daily Continue Haldol Titrate down the FiO2 as tolerated Continue bronchodilators and steroids Nicoderm patch in place Continue to monitor closely here in the ICU dental chair assembler at the bedside We will continue to follow I have personally seen and examined the patient, performed the documentation and the assessment and plan as written. Number of minutes spent on the visit: 10.
--- NOTE | 2023-05-25 14:27 | P.PN ---
Subjective Progress Note Date: 05/25/23 Hospital Course: 57-year-old male with history of COPD, nicotine dependence, alcohol dependence presenting with progressively worsening shortness of breath. Patient continues to smoke about 1 pack/day, drinks 1 pint of alcohol per day. Has been complaining of some lower extremity swelling as well. On initial presentation, patient was hypoxic on room air, hypertensive, tachypneic. Laboratory workup showed bicarb of 34, creatinine was 0.63, troponin negative, proBNP 310, respiratory viral panel was negative. Chest x-ray showed interstitial opacities. EKG showed sinus rhythm. Patient also had gallbladder ultrasound which showed moderate hepatic steatosis, no gallstones or biliary ductal dilat ation. Patient admitted for COPD exacerbation, alcohol withdrawal, possible CHF exacerbation. Pulmonology consulted. Subjective: Pt was seen today, resting comfortably in bed this morning. Requiring 5L O2, down from 6L, saturating 89-91% Vitals Signs Reviewed. Gen: In NAD, non-toxic HEENT: normocephalic, atraumatic, hearing acuity is intant, mucous membranes moist CVS: perfusing all extremities well, no pitting edema, Respiratory: symmetric chest expansion, no accessory muscle use, GI: soft, NTTP, ND, : no suprapubic tenderness, no CVA tenderness MSK/Derm: no rashes, cyanosis Neuro: CN II-XII intact, no motor weakness, Assessment and Plan: Acute hypoxic respiratory failure Acute COPD exacerbation Nicotine dependence Bilateral lower extremity edema -Wean supplemental oxygen -Continue IV Solu-Medrol 60 every 6 hours, monitor mentation and blood sugars DuoNebs 4 times daily scheduled and as needed, continue Symbicort twice daily Also on azithromycin 500 IV daily - echocardiogram pending -Monitor BMP and magnesium Acute alcohol withdrawal Alcohol dependence Hepatic steatosis -Ativan as needed per CIWA score, monitor for sedation -Thiamine 100 mg daily Chronic: Obesity Neuropathy DVT ppx: Lovenox Code status: Full code Anticipated discharge place: Pending clinical course Anticipated discharge time: Pending clinical course Objective - Vital Signs Vital signs: Vital Signs Temp 99.3 F 05/25/23 12:00 Pulse 85 05/25/23 13:00 Resp 11 L 05/25/23 13:00 BP 137/88 05/25/23 13:00 Pulse Ox 91 L 05/25/23 13:00 FiO2 Intake & Output 05/24/23 05/25/23 05/25/23 18:59 06:59 18:59 Intake Total 600 Output Total 425 250 Balance -425 350 Weight 94.6 kg Intake: Oral 600 Output: Urine 425 250 Other: Voiding Method Bedside Commode Bedside Commode # Voids 1 - Labs CBC & Chem 7: 05/25/23 06:24 05/25/23 06:24 Labs: Abnormal Lab Results - Last 24 Hours (Table) 05/24/23 05/24/23 05/24/23 Range/Units 13:55 17:04 20:16 WBC (3.8-10.6) k/uL MCV (80.0-100.0) fL Neutrophils # (1.3-7.7) k/uL Lymphocytes # (1.0-4.8) k/uL Carbon Dioxide (22-30) mmol/L Creatinine (0.66-1.25) mg/dL Glucose (74-99) mg/dL POC Glucose (mg/dL) 159 H 218 H (70-110) mg/dL Procalcitonin 0.13 H (0.02-0.09) ng/mL 05/25/23 05/25/23 Range/Units 06:24 06:24 WBC 14.9 H (3.8-10.6) k/uL MCV 100.7 H (80.0-100.0) fL Neutrophils # 13.6 H (1.3-7.7) k/uL Lymphocytes # 0.8 L (1.0-4.8) k/uL Carbon Dioxide 32 H (22-30) mmol/L Creatinine 0.60 L (0.66-1.25) mg/dL Glucose 169 H (74-99) mg/dL POC Glucose (mg/dL) (70-110) mg/dL Procalcitonin (0.02-0.09) ng/mL Microbiology - Last 24 Hours (Table) 05/23/23 19:00 Blood Culture - Preliminary Blood 05/23/23 18:45 Blood Culture - Preliminary Blood
[2023-05-26 04:59] LABS: Basophils % (A) 0 %; Eosinophils % (A) 0 %; HCT 45.7 % (39.0-53.0); HGB 14.8 gm/dL (13.0-17.5); Lymphocytes # (A) 0.5 k/uL (1.0-4.8); Lymphocytes % (A) 4 %; MCH 32.5 pg (25.0-35.0); MCHC 32.4 g/dL (31.0-37.0); MCV 100.2 fL (80.0-100.0); Macrocytosis Slight; Mean Platelet Volume 8.2; Monocytes # (A) 0.4 k/uL (0-1.0); Monocytes % (A) 3 %; Neutrophils # (A) 11.7 k/uL (1.3-7.7); Neutrophils % (A) 92 %; Platelet Count 280 k/uL (150-450); RBC 4.56 m/uL (4.30-5.90); RDW 15.2 % (11.5-15.5); WBC 12.8 k/uL (3.8-10.6)
[2023-05-26 05:10] LABS: African American GFR (CKD) >90 (>60 ml/min/1.73 sqM); Anion Gap -1 mmol/L; Blood Urea Nitrogen 21 mg/dL (9-20); Calcium 8.8 mg/dL (8.4-10.2); Carbon Dioxide 34 mmol/L (22-30); Chloride 106 mmol/L (98-107); Glucose 161 mg/dL (74-99); Magnesium 2.4 mg/dL (1.6-2.3); Non-African American GFR(CKD) >90 (>60 ml/min/1.73 sqM); Potassium 4.6 mmol/L (3.5-5.1); Sodium 139 mmol/L (137-145)
--- NOTE | 2023-05-26 08:18 | XR ---
EXAMINATION TYPE: XR chest 1V portable DATE OF EXAM: 05/26/2023 COMPARISON: 05/25/2023 HISTORY: Cough TECHNIQUE: Single frontal view of the chest is obtained. FINDINGS: Left lower lobe consolidation and small effusion stable postsurgical changes cervical spin e and shoulder. No overt failure or pneumothorax. Heart size stable. Bilateral shoulder arthropathy. Underlying COPD suspected. IMPRESSION: 1. Left lower lobe infiltrate and small effusion stable.
--- NOTE | 2023-05-26 10:49 | P.PN ---
Subjective Progress Note Date: 05/26/23 I am seeing this patient in consultation today 05/24/2023 for suspected acute COPD exacerbation. Patient is a 57-year-old white male with past medical history significant for COPD, chronic and ongoing tobacco dependence, alcoholism. He has recently become established with a new PCP, and is unable to recall her name. Patient states that he has been previously diagnosed with COPD. He has used a combination of albuterol nebulizations and Advair discus in the past, but has ran out of refills. Over the last couple months the patient has been experiencing progressively worsening shortness of breath. Especially on exertion. He endorses chest tightness and coughing episodes which are mostly nonproductive. Occasionally will have green/brown sputum. He continues to smoke a little bit less than 1 pack/day. He also drinks 1 pint of schnapps per day. He states that he started doing this after his significant other approximately 6 months ago. He is also complaining of increased lower extremity swelling. He denies any chest pain, heart palpitations, orthopnea, PND. He does not have a expert witness. Denies ever having a stress test or echocardiogram. Patient is currently sitting at the edge of the bed, on 3 L/min nasal cannula, in no acute distress. He does become dyspneic with prolonged conversation. Chest x-ray on arrival hyperinflation consistent with COPD. There is also mild diffuse interstitial densities which could reflect bronchitis, asthma, atypical pneumonia, or mild pulmonary vascular congestion. No angel consolidation or pleural effusion. Negative for influenza, RSV, COVID on arrival. CBC unremarkable. No leukocytosis. BMP includes a sodium 137, potassium 4.3, chloride 101, serum bicarb 34, BUN 4, creatinine 0.63, glucose 113. Troponin less than 0.012. NT proBNP 310. Patient is also reporting some right upper quadrant abdominal pain. Described as sore. Tender with palpation. No nausea, vomiting, diarrhea. No history of peptic ulcers. No bloody BM or hematemesis. Ultrasound of the gallbladder did not show any gallstones or biliary ductal dilation. There was moderate hepatic steatosis. LFTs not elevated. Afebrile. Vital signs are stable. The patient is seen today May 25, 2023 in follow-up in the intensive care unit. He is currently sitting up in bed, restless, process safety manager at the bedside. He remains on the CIWA protocol. He required 8 mg of Ativan through the night another 2 mg this morning. He is maintaining O2 saturation in the 90s on 5 L/min per nasal cannula. He is in sinus rhythm. Afebrile. Blood pressure stable. Chest x-ray reveals cardiomegaly with underlying COPD and a left lower lobe atelectasis or early infiltrate. White count 14.9. Hemoglobin 14.9. Platelets 303. Sodium 140. Potassium 4.7. Bicarb 32. BUN 18. Creatinine 0.60. Glucose 169. Procalcitonin was 0.13. He remains on azithromycin. Continued on DuoNeb inhalations, Symbicort, Solu-Medrol. NicoDerm patch in place. Lovenox for DVT prophylaxis The patient is seen today May 26, 2023 in follow-up in the intensive care unit. He is currently resting comfortably in bed. Awake and alert in no acute distress. Calm and cooperative. He did not require Ativan or Haldol last night. He remains on Seroquel. He remains on azithromycin. His procalcitonin was 0.13. He is continue on DuoNeb ventilations, Symbicort, Solu-Medrol. Lovenox for DVT prophylaxis. White count 12.8. Hemoglobin 14.8. Platelets 280. Sodium 139. Potassium 4.6. Bicarb 34. BUN 21. Creatinine 0.58. Glucose 161. He is maintaining O2 saturations in the 90s on 6 L high flow nasal cannula. Afebrile. Hemodynamically stable. Objective - Vital Signs Vital signs: Vital Signs Temp 97.6 F 05/26/23 08:00 Pulse 62 05/26/23 09:00 Resp 18 05/26/23 09:00 BP 129/89 05/26/23 09:00 Pulse Ox 91 L 05/26/23 09:00 FiO2 Intake & Output 05/25/23 05/26/23 05/26/23 18:59 06:59 18:59 Intake Total 800 310 100 Output Total 750 350 Balance 50 -40 100 Weight 96.5 kg Intake: Intake, IV Titration 250 Amount Azithromycin 500 mg In 250 Sodium Chloride 0.9% 250 ml @ 250 mls/hr IVPB ONCE STA Rx#:[id number] Oral 800 60 100 Output: Urine 750 350 Other: Voiding Method Bedside Commode Bedside Commode - Exam GENERAL EXAM: Alert, calm, cooperative 57-year-old male, resting in bed, on 6 L nasal cannula, in no acute distress. HEAD: Normocephalic and atraumatic EYES: Normal reaction of pupils, equal size. NOSE: Clear with pink turbinates. THROAT: No erythema or exudates. NECK: No masses, no JVD. CHEST: No chest wall deformity. LUNGS: Equal air entry with diffuse rhonchi and expiratory wheezes. No accessory muscle use. CVS: S1 and S2 normal with no audible murmur, regular rhythm. No extra heart sounds ABDOMEN: No hepatosplenomegaly, active bowel sounds, no guarding or rigidity. SPINE: No scoliosis or deformity SKIN: No rashes CENTRAL NERVOUS SYSTEM: No focal deficits, tone is normal in all 4 extremities. EXTREMITIES: There is 1+ bilateral lower extremity edema. No clubbing, or cyanosis. Peripheral pulses are intact. - Labs CBC & Chem 7: 05/26/23 04:46 05/26/23 04:46 Labs: Abnormal Lab Results - Last 24 Hours (Table) 05/26/23 05/26/23 Range/Units 04:46 04:46 WBC 12.8 H (3.8-10.6) k/uL MCV 100.2 H (80.0-100.0) fL Neutrophils # 11.7 H (1.3-7.7) k/uL Lymphocytes # 0.5 L (1.0-4.8) k/uL Carbon Dioxide 34 H (22-30) mmol/L BUN 21 H (9-20) mg/dL Creatinine 0.58 L (0.66-1.25) mg/dL Glucose 161 H (74-99) mg/dL Magnesium 2.4 H (1.6-2.3) mg/dL Microbiology - Last 24 Hours (Table) 05/23/23 19:00 Blood Culture - Preliminary Blood 05/23/23 18:45 Blood Culture - Preliminary Blood Assessment and Plan Assessment: Acute hypoxemic respiratory failure, secondary to acute COPD exacerbation Chronic ongoing tobacco dependence, smokes slightly less than 1 pack/day Alcoholism, drinks 1 pint of schnapps per day Hepatic steatosis Bilateral lower extremity edema Bilateral lower extremity neuropathy Obesity, with a BMI of 33.8 kg/m Plan: The patient was seen and evaluated Labs and medications reviewed Remains on the [facility] protocol Seroquel 50 mg 3 times daily Requiring less Haldol and Ativan Titrate down the FiO2 as tolerated Continue bronchodilators Discontinue Solu-Medrol, initiate prednisone taper Procalcitonin 0.13, continue azithromycin Educated regarding the importance of smoking and drinking cessation Transfer to the regular medical floor We will continue to follow I have personally seen and examined the patient, performed the documentation and the assessment and plan as written. Number of minutes spent on the visit: 10.
--- NOTE | 2023-05-26 11:25 | P.PN ---
Subjective Progress Note Date: 05/26/23 Hospital Course: 57-year-old male with history of COPD, nicotine dependence, alcohol dependence presenting with progressively worsening shortness of breath. Patient continues to smoke about 1 pack/day, drinks 1 pint of alcohol per day. Has been complaining of some lower extremity swelling as well. On initial presentation, patient was hypoxic on room air, hypertensive, tachypneic. Laboratory workup showed bicarb of 34, creatinine was 0.63, troponin negative, proBNP 310, respiratory viral panel was negative. Chest x-ray showed interstitial opacities. EKG showed sinus rhythm. Patient also had gallbladder ultrasound which showed moderate hepatic steatosis, no gallstones or biliary ductal dilat ation. Patient admitted for COPD exacerbation, alcohol withdrawal, possible CHF exacerbation. Pulmonology consulted. Subjective: Pt was seen today, resting comfortably in bed this morning. Requiring 6L O2, but has had stable oxygenation. More alert and awake. Still wheezing. Vitals Signs Reviewed. Gen: In NAD, non-toxic HEENT: normocephalic, atraumatic, hearing acuity is intant, mucous membranes moist CVS: perfusing all extremities well, no pitting edema, Respiratory: symmetric chest expansion, no accessory muscle use, GI: soft, NTTP, ND, : no suprapubic tenderness, no CVA tenderness MSK/Derm: no rashes, cyanosis Neuro: CN II-XII intact, no motor weakness, Assessment and Plan: Acute hypoxic respiratory failure Acute COPD exacerbation Nicotine dependence Bilateral lower extremity edema -Wean supplemental oxygen -Solumedrol switched to prednisone DuoNebs 4 times daily scheduled and as needed, continue Symbicort twice daily Also on azithromycin 500 IV daily - echocardiogram pending, reordered after if was canceled without physician notification - patient had refused as reason for cancellation, but will need to be reattempted -Monitor BMP and magnesium Acute alcohol withdrawal Alcohol dependence Hepatic steatosis -Ativan as needed per CIWA score, monitor for sedation -Thiamine 100 mg daily Chronic: Obesity Neuropathy DVT ppx: Lovenox Code status: Full code Anticipated discharge place: Pending clinical course Anticipated discharge time: Pending clinical course Objective - Vital Signs Vital signs: Vital Signs Temp 97.6 F 05/26/23 08:00 Pulse 62 05/26/23 09:00 Resp 18 05/26/23 09:00 BP 129/89 05/26/23 09:00 Pulse Ox 91 L 05/26/23 09:00 FiO2 Intake & Output 05/25/23 05/26/23 05/26/23 18:59 06:59 18:59 Intake Total 800 310 100 Output Total 750 350 Balance 50 -40 100 Weight 96.5 kg Intake: Intake, IV Titration 250 Amount Azithromycin 500 mg In 250 Sodium Chloride 0.9% 250 ml @ 250 mls/hr IVPB ONCE STA Rx#:[id number] Oral 800 60 100 Output: Urine 750 350 Other: Voiding Method Bedside Commode Bedside Commode - Labs CBC & Chem 7: 05/26/23 04:46 05/26/23 04:46 Labs: Abnormal Lab Results - Last 24 Hours (Table) 05/26/23 05/26/23 Range/Units 04:46 04:46 WBC 12.8 H (3.8-10.6) k/uL MCV 100.2 H (80.0-100.0) fL Neutrophils # 11.7 H (1.3-7.7) k/uL Lymphocytes # 0.5 L (1.0-4.8) k/uL Carbon Dioxide 34 H (22-30) mmol/L BUN 21 H (9-20) mg/dL Creatinine 0.58 L (0.66-1.25) mg/dL Glucose 161 H (74-99) mg/dL Magnesium 2.4 H (1.6-2.3) mg/dL Microbiology - Last 24 Hours (Table) 05/23/23 19:00 Blood Culture - Preliminary Blood 05/23/23 18:45 Blood Culture - Preliminary Blood
[2023-05-26] MEDS: predniSONE 20 MG TAB PO SCH (11:38)
[2023-05-26] MEDS: FUROSEMIDE 10 MG/ML 4 ML VIAL IV STA (11:38)
--- NOTE | 2023-05-27 08:18 | P.PN ---
Subjective Progress Note Date: 05/27/23 I am seeing this patient in consultation today 05/24/2023 for suspected acute COPD exacerbation. Patient is a 57-year-old white male with past medical history significant for COPD, chronic and ongoing tobacco dependence, alcoholism. He has recently become established with a new PCP, and is unable to recall her name. Patient states that he has been previously diagnosed with COPD. He has used a combination of albuterol nebulizations and Advair discus in the past, but has ran out of refills. Over the last couple months the patient has been experiencing progressively worsening shortness of breath. Especially on exertion. He endorses chest tightness and coughing episodes which are mostly nonproductive. Occasionally will have green/brown sputum. He continues to smoke a little bit less than 1 pack/day. He also drinks 1 pint of schnapps per day. He states that he started doing this after his significant other approximately 6 months ago. He is also complaining of increased lower extremity swelling. He denies any chest pain, heart palpitations, orthopnea, PND. He does not have a programmer analyst. Denies ever having a stress test or echocardiogram. Patient is currently sitting at the edge of the bed, on 3 L/min nasal cannula, in no acute distress. He does become dyspneic with prolonged conversation. Chest x-ray on arrival hyperinflation consistent with COPD. There is also mild diffuse interstitial densities which could reflect bronchitis, asthma, atypical pneumonia, or mild pulmonary vascular congestion. No angel consolidation or pleural effusion. Negative for influenza, RSV, COVID on arrival. CBC unremarkable. No leukocytosis. BMP includes a sodium 137, potassium 4.3, chloride 101, serum bicarb 34, BUN 4, creatinine 0.63, glucose 113. Troponin less than 0.012. NT proBNP 310. Patient is also reporting some right upper quadrant abdominal pain. Described as sore. Tender with palpation. No nausea, vomiting, diarrhea. No history of peptic ulcers. No bloody BM or hematemesis. Ultrasound of the gallbladder did not show any gallstones or biliary ductal dilation. There was moderate hepatic steatosis. LFTs not elevated. Afebrile. Vital signs are stable. The patient is seen today May 25, 2023 in follow-up in the intensive care unit. He is currently sitting up in bed, restless, safety deposit boxes custodian at the bedside. He remains on the CIWA protocol. He required 8 mg of Ativan through the night another 2 mg this morning. He is maintaining O2 saturation in the 90s on 5 L/min per nasal cannula. He is in sinus rhythm. Afebrile. Blood pressure stable. Chest x-ray reveals cardiomegaly with underlying COPD and a left lower lobe atelectasis or early infiltrate. White count 14.9. Hemoglobin 14.9. Platelets 303. Sodium 140. Potassium 4.7. Bicarb 32. BUN 18. Creatinine 0.60. Glucose 169. Procalcitonin was 0.13. He remains on azithromycin. Continued on DuoNeb inhalations, Symbicort, Solu-Medrol. NicoDerm patch in place. Lovenox for DVT prophylaxis The patient is seen today May 26, 2023 in follow-up in the intensive care unit. He is currently resting comfortably in bed. Awake and alert in no acute distress. Calm and cooperative. He did not require Ativan or Haldol last night. He remains on Seroquel. He remains on azithromycin. His procalcitonin was 0.13. He is continue on DuoNeb ventilations, Symbicort, Solu-Medrol. Lovenox for DVT prophylaxis. White count 12.8. Hemoglobin 14.8. Platelets 280. Sodium 139. Potassium 4.6. Bicarb 34. BUN 21. Creatinine 0.58. Glucose 161. He is maintaining O2 saturations in the 90s on 6 L high flow nasal cannula. Afebrile. Hemodynamically stable. The patient is seen today May 27, 2023 in follow-up on the regular medical floor. He is sitting up in bed. Awake and alert in no acute distress. He still has a loose nonproductive cough. No fever or chills. Maintaining O2 saturations in the 90s on 2 L/min per nasal cannula. He does have home oxygen as well. Blood cultures revealed no growth. No new labs today. He remains on DuoNeb ventilations, Symbicort, prednisone taper. Lovenox for DVT prophylaxis. He is doing well on Seroquel. He did not require any Haldol or Ativan last night. Objective - Vital Signs Vital signs: Vital Signs Temp 97.8 F 05/27/23 07:59 Pulse 90 05/27/23 08:03 Resp 15 05/27/23 07:59 BP 134/73 05/27/23 07:59 Pulse Ox 95 05/27/23 07:59 FiO2 Intake & Output 05/26/23 05/27/23 05/27/23 18:59 06:59 18:59 Intake Total 580 Output Total 1900 400 Balance -1320 -400 Intake: Oral 580 Output: Urine 1900 400 Other: Voiding Method Toilet - Exam GENERAL EXAM: Alert, cooperative 57-year-old male, sitting up in bed, on 2 L nasal cannula, in no acute distress. HEAD: Normocephalic and atraumatic EYES: Normal reaction of pupils, equal size. NOSE: Clear with pink turbinates. THROAT: No erythema or exudates. NECK: No masses, no JVD. CHEST: No chest wall deformity. LUNGS: Equal air entry with rhonchi and expiratory wheezes. No accessory muscle use. CVS: S1 and S2 normal with no audible murmur, regular rhythm. No extra heart sounds ABDOMEN: No hepatosplenomegaly, active bowel sounds, no guarding or rigidity. SPINE: No scoliosis or deformity SKIN: No rashes CENTRAL NERVOUS SYSTEM: No focal deficits, tone is normal in all 4 extremities. EXTREMITIES: There is 1+ bilateral lower extremity edema. No clubbing, or cyanosis. Peripheral pulses are intact. - Labs CBC & Chem 7: 05/26/23 04:46 05/26/23 04:46 Labs: Microbiology - Last 24 Hours (Table) 05/23/23 19:00 Blood Culture - Preliminary Blood 05/23/23 18:45 Blood Culture - Preliminary Blood Assessment and Plan Assessment: Acute hypoxemic respiratory failure, secondary to acute COPD exacerbation Chronic ongoing tobacco dependence, smokes slightly less than 1 pack/day Alcoholism, drinks 1 pint of schnapps per day Hepatic steatosis Bilateral lower extremity edema Bilateral lower extremity neuropathy Obesity, with a BMI of 33.8 kg/m Plan: The patient was seen and evaluated Medications reviewed He is cleared for discharge from the pulmonary standpoint Continue Symbicort, albuterol HFA, prednisone taper The patient does have home oxygen Educated regarding the importance of smoking and drinking cessation Follow-up in our office in 1 week This patient was seen independently by the pulmonary nurse practitioner addressing pulmonary issues I have personally seen and examined the patient, performed the documentation and the assessment and plan as written. Number of minutes spent on the visit: 23.
[2023-05-27 08:31] VITALS: BP 134/73; RESP 15; TEMP 97.8
[2023-05-27 12:04] VITALS: PULSE 90
--- NOTE | 2023-05-27 13:28 | CA ---
Transthoracic Echo Report Name: Josef Mauricio Age: 57 Gender: M : 1965 Exam Date: 05/26/2023 13:30 Exam Location: [place] [facility] Ht (in): 67 Wt (lb): 212 Ordering Physician: Jose Parker MD Attending/Referring Phys: Business Information Analyst Ny Gomez RCS Procedure CPT: Indications: dyspnea Cardiac Hx: Technical Quality: Good Contrast 1: Total Dose (mL): Contrast 2: Total Dose (mL): MEASUREMENTS (Male / Female) Normal Values 2D ECHO LV Diastolic Diameter PLAX 5.0 cm 4.2 - 5.9 / 3.9 - 5.3 cm LV Systolic Diameter PLAX 2.9 cm IVS Diastolic Thickness 1.0 cm 0.6 - 1.0 / 0.6 - 0.9 cm LVPW Diastolic Thickness 1.1 cm 0.6 - 1.0 / 0.6 - 0.9 cm LV Relative Wall Thickness 0.4 RV Internal Dim ED PLAX 3.6 cm LVOT Diameter 2.3 cm Aortic Root Diameter 3.3 cm LV Diastolic Volume MOD BP 137.1 cm??? 67 - 155 / 56 - 104 cm??? LV Systolic Volume MOD BP 49.5 cm??? 22 - 58 / 19 - 49 cm??? LV Ejection Fraction MOD BP 63.9 % >= 55 % LV Cardiac Index MOD BP 2911.1 cm???/min???m??? LV Diastolic Volume MOD 4C 139.8 cm??? LV Systolic Volume MOD 4C 58.3 cm??? LV Ejection Fraction MOD 4C 58.3 % LV Cardiac Index MOD 4C 2708.8 cm???/min???m??? LV Diastolic Length 4C 9.2 cm LV Systolic Length 4C 7.8 cm LV Diastolic Volume MOD 2C 133.0 cm??? LV Systolic Volume MOD 2C 40.3 cm??? LV Ejection Fraction MOD 2C 69.7 % LV Cardiac Index MOD 2C 3082.0 cm???/min???m??? LV Diastolic Length 2C 9.1 cm LV Systolic Length 2C 7.2 cm Ascending Aorta Diameter 3.7 cm DOPPLER AV Peak Velocity 133.5 cm/s AV Peak Gradient 7.1 mmHg AV Mean Velocity 89.7 cm/s AV Mean Gradient 3.7 mmHg AV Velocity Time Integral 25.4 cm LVOT Peak Velocity 118.5 cm/s LVOT Peak Gradient 5.6 mmHg LVOT Velocity Time Integral 19.2 cm LVOT Stroke Volume 79.3 cm??? LVOT Stroke Volume Index 38.3 ml/m??? LVOT Cardiac Index 2636.1 cm???/min???m??? AV Area Cont Eq vti 3.1 cm??? AV Area Cont Eq pk 3.7 cm??? Mitral E Point Velocity 83.1 cm/s Mitral A Point Velocity 104.6 cm/s Mitral E to A Ratio 0.8 MV Deceleration Time 205.5 ms MV E' Velocity 7.4 cm/s Mitral E to MV E' Ratio 11.2 PV Peak Velocity 87.0 cm/s PV Peak Gradient 3.0 mmHg FINDINGS Left Ventricle Left ventricular ejection fraction is estimated at 55-60 %. Left ventricular wall thickness normal. Left ventricular cavity size normal. No obvious regional wall motion abnormalities. Right Ventricle Normal right ventricular size and function. Unable to determine right ventricular systolic pressure. Right Atrium Normal right atrial size. Left Atrium Normal left atrial size. Mitral Valve Structurally normal mitral valve. No mitral stenosis. Trace mitral regurgitation. Aortic Valve Trileaflet aortic valve. No aortic valve stenosis or regurgitation. Tricuspid Valve Structurally normal tricuspid valve. No tricuspid stenosis, regurgitation or prolapse. Pulmonic Valve Structurally normal pulmonic valve. No pulmonic stenosis. Trace pulmonic regurgitation. Pericardium No pericardial effusion. Aorta Normal size aortic root and proximal ascending aorta. CONCLUSIONS Normal LV size and systolic fn Previewed by: Dr. Juan F Mike MD (Electronically Signed) Final Date: 27 May 2023 13:27
--- NOTE | 2023-05-27 16:02 | P.DS ---
Providers Date of admission: 05/24/23 11:24 Expected date of discharge: 05/27/23 Attending physician: Albina Jordan MD Consults: 05/23/23 22:12 Consult Physician Routine Consulting Provider: Kobe Whatley Consult Reason/Comments: dyspnea Do you want consulting provider notified?: Yes Primary care physician: Stated None Hospital Course: Acute hypoxic respiratory failure Acute COPD exacerbation Nicotine dependence Bilateral lower extremity edema Acute alcohol withdrawal Alcohol dependence Hepatic steatosis Obesity Neuropathy Hospital Course: 57-year-old male with history of COPD, nicotine dependence, alcohol dependence presenting with progressively worsening shortness of breath. Patient continues to smoke about 1 pack/day, drinks 1 pint of alcohol per day. Has been complaining of some lower extremity swelling as well. On initial presentation, patient was hypoxic on room air, hypertensive, tachypneic. Laboratory workup showed bicarb of 34, creatinine was 0.63, troponin negative, proBNP 310, respiratory viral panel was negative. Chest x-ray showed interstitial opacities. EKG showed sinus rhythm. Patient also had gallbladder ultrasound which showed moderate hepatic steatosis, no gallstones or biliary ductal dilatation. Patient admitted for COPD exacerbation, alcohol withdrawal, possible CHF exacerbation. Pulmonology consulted. Patient was treated in the intensive care unit with treatment for COPD and gradually improved and was stepdown to the floor. He was ultimately switched from Solu-Medrol to prednisone by pulmonology and weaned back to his home oxygen requirement. Echocardiogram was ordered for heart failure rule out and showed appropriate ejection fraction with no evidence of diastolic dysfunction. Patient did ultimately receive 2 pushes of Lasix during his stay. Patient will need to follow-up with pulmonology for further management of COPD. He was heavily instructed on smoking and drinking cessation. I spent 40 minutes coordinating this discharge on 05/27 Gen: In NAD, non-toxic HEENT: normocephalic, atraumatic, hearing acuity is intant, mucous membranes moist CVS: perfusing all extremities well, no pitting edema, Respiratory: symmetric chest expansion, no accessory muscle use, GI: soft, NTTP, ND, : no suprapubic tenderness, no CVA tenderness MSK/Derm: no rashes, cyanosis Neuro: CN II-XII intact, no motor weakness, Patient Condition at Discharge: Good Plan - Discharge Summary Discharge Rx Participant: Yes New Discharge Prescriptions: New Budesonide-Formot 160-4.5 Mcg [Symbicort 160-4.5 Mcg Inhaler] 2 puff INHALATION RT-BID #1 each predniSONE [Deltasone] 40 mg PO DAILY #2 tab Acetaminophen Tab [Tylenol] 650 mg PO Q4HR PRN tab PRN Reason: Mild Pain Or Fever > 100.5 Thiamine [Vitamin B-1] 100 mg PO DAILY #30 tab Continue oxyCODONE-APAP 10-325MG [Percocet 10-325 mg] 1 tab PO TID Albuterol Inhaler [Ventolin Hfa Inhaler] 1 - 2 puff INHALATION RT-Q6H PRN PRN Reason: Dyspnea Omeprazole 20 mg PO DAILY Pregabalin [Lyrica] 150 mg PO TID EPINEPHrine (Auto Inject) [Epipen] 0.3 mg IM ONCE PRN PRN Reason: Anaphylaxis Discontinued Ibuprofen [Motrin] 800 mg PO TID Discharge Medication List Albuterol Inhaler [Ventolin Hfa Inhaler] 1 - 2 puff INHALATION RT-Q6H PRN 11/17/14 [History] oxyCODONE-APAP 10-325MG [Percocet 10-325 mg] 1 tab PO TID 11/17/14 [History] EPINEPHrine (Auto Inject) [Epipen] 0.3 mg IM ONCE PRN 05/23/23 [History] Omeprazole 20 mg PO DAILY 05/23/23 [History] Pregabalin [Lyrica] 150 mg PO TID 05/23/23 [History] Acetaminophen Tab [Tylenol] 650 mg PO Q4HR PRN tab 05/27/23 [Rx] Budesonide-Formot 160-4.5 Mcg [Symbicort 160-4.5 Mcg Inhaler] 2 puff INHALATION RT-BID #1 each 05/27/23 [Rx] Thiamine [Vitamin B-1] 100 mg PO DAILY #30 tab 05/27/23 [Rx] predniSONE [Deltasone] 40 mg PO DAILY #2 tab 05/27/23 [Rx] Follow up Appointment(s)/Referral(s): None,Stated [Primary Care Provider] - 1-2 days Patient Instructions/Handouts: COPD (Chronic Obstructive Pulmonary Disease) (DC), Alcohol Withdrawal (DC) Activity/Diet/Wound Care/Special Instructions: NO ALCOHOL DIET TOLERATED ACTIVITY LIMITED UNTIL SEEN BY PLEASE WORK ON GETTING A PRIMARY DRSanjay Discharge/Stand Alone Forms: AA Meetings [facility], Outpatient Counseling, In Substance Abuse Facilities Discharge Disposition: HOME SELF-CARE
== END 2023-05-27 12:20 | disposition home or self-care (01) ==
LOC: EC 18:16 → 2SICU 22:12 → UNDOADMOB 22:13 → OBSVTOIN 22:13 → INTOOBSV 22:13 → 6NMEDSUR 22:13 → INTOOBSV 05-24 11:24 → OBSVTOIN 05-24 11:24 → 2SICU 05-24 11:29 → 6NMEDSUR 05-24 11:29 → 2SICU 05-24 16:46 → 5NMEDONC 05-26 17:57 → UNDODISIN 05-27 12:20
PROVIDERS: ADMIT Internal Medicine; ATTEND Internal Medicine
DX: J44.1 Chronic obstructive pulmonary disease with (acute) exacerbation (principal); J96.21 Acute and chronic respiratory failure with hypoxia; F10.239 Alcohol dependence with withdrawal, unspecified; J98.11 Atelectasis; I11.9 Hypertensive heart disease without heart failure; R60.0 Localized edema; E66.9 Obesity, unspecified; Z68.33 Body mass index [BMI] 33.0-33.9, adult; K76.0 Fatty (change of) liver, not elsewhere classified; R10.11 Right upper quadrant pain; G57.93 Unspecified mononeuropathy of bilateral lower limbs; F17.210 Nicotine dependence, cigarettes, uncomplicated; F41.9 Anxiety disorder, unspecified; Z99.81 Dependence on supplemental oxygen; Z79.899 Other long term (current) drug therapy; Z91.030 Bee allergy status; Z11.52 Encounter for screening for COVID-19; Z11.59 Encounter for screening for other viral diseases; Z71.6 Tobacco abuse counseling; Z71.41 Alcohol abuse counseling and surveillance of alcoholic; Z82.49 Family history of ischemic heart disease and other diseases of the circulatory system
CPT/HCPCS: 96376 ×4; 96365; 96366 ×3; 96372 ×4; 96375 ×3; 99285; 36415; 94640 ×9; 94760 ×2; 93005; 93306; 83880; 80053; 80048 ×2; 83605; 83735 ×3; 84484; 85025 ×3; 85610; 85730; 87040; 84145; 87636; 71045 ×2; 71046; 76705; G0378 ×6; G0480; S4990 ×4; J2060 ×2; J2270 ×2; J1630; J1940 ×2; J2930 ×4; J3411; J0456 ×4; J1650 ×4; J7512 ×2; 80320; 96374